=== PATIENT | male | born 1970 | race Caucasian/White ===

== ENCOUNTER 2017-10-13 01:35 | Emergency (ER) | payer MEDICAID ==
[~2017-10-13] VITALS: Ht 193 cm; Wt 81.6 kg
--- NOTE | 2017-10-13 01:54 | NUR ---
Pt states that he has had a productive cough for 4 days, feels weak. LS clear on left, crackles on right. Pt denies CP (except while coughing), dizziness, n/v, no other complaints, no distress noted.
[2017-10-13] MEDS ORDERED: LEVOFLOXACIN 750MG/D5W 150 ML IV ONE ×2 (02:30→03:07)
[2017-10-13] MEDS ORDERED: IV NORMAL SALINE 1000 ML BAG IV ONE (02:30)
--- NOTE | 2017-10-13 03:00 | NUR ---
Started IV pt's left foot, zaid blood for cultures, then flow stopped and flushed for IV use. 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 Pt refused further blood draws at this time.
--- NOTE | 2017-10-13 03:44 | NUR ---
Pt sleeping in bed, no distress noted.
--- NOTE | 2017-10-13 04:44 | NUR ---
Removed IV intact, site okay, bandaged. Gave pt RX and d/c instructions, verbalized understanding.
[2017-10-13 04:49] VITALS: BP 123/78
== END 2017-10-13 04:50 | disposition home or self-care (01) ==
LOC: ER 01:42
DX: J18.9 Pneumonia, unspecified organism (principal); F17.210 Nicotine dependence, cigarettes, uncomplicated; F11.10 Opioid abuse, uncomplicated
CPT/HCPCS: 71045; 93005; A4663; J1956; J7030; J7040